=== PATIENT | female | born 1985 | race Hispanic/Latino ===

== ENCOUNTER 2020-02-18 14:30 | Emergency (ER) | payer OTHER ==
[2020-02-18] MEDS ORDERED: AMOX/K CLAV 875 MG TAB ONE (16:46)
[2020-02-18] MEDS ORDERED: ACETAMINOPHEN 325 MG TABLET ONE (16:46)
--- NOTE | 2020-02-18 17:34 | RAD REPORT ---
EXAM DESCRIPTION: RAD - Hand Left 3 View - 02/18/2020 5:02 pm CLINICAL HISTORY: ANIMAL BITE, left hand pain COMPARISON: None. FINDINGS: No fracture, dislocation or periosteal reaction noted. No foreign body. Soft tissue injury to the distal forearm separately reported. No acute bone or joint finding. IMPRESSION: No bone or joint abnormality of the left hand.
--- NOTE | 2020-02-18 17:35 | RAD REPORT ---
EXAM DESCRIPTION: RAD - Forearm Left - 02/18/2020 5:02 pm CLINICAL HISTORY: ANIMAL BITE COMPARISON: None. FINDINGS: No fracture is identified. There is no dislocation or periosteal reaction noted. Soft tissue injury present in the distal left forearm soft tissues. Lucent areas are consistent with air in the soft tissues from the animal bite. There is no foreign body. IMPRESSION: Soft tissue wound as detailed. No bone or joint abnormality.
--- NOTE | 2020-02-18 17:36 | ER ---
Nurse's Notes [facility] Name: Brittaney Nash Age: 34 yrs Sex: Female : 1985 Arrival Date: 02/18/2020 Time: 14:33 Bed 12 Private MD: Diagnosis: Bitten by dog-left forearm;Laceration without foreign body of left forearm;Puncture wound without foreign body of left forearm Presentation: 02/17 14:33 Chief complaint: EMS states: pit bull bit L forearm approximately 45 minutes ago. PD on ss scene. Dog has been captured and taken by animal laboratory helper. No active bleeding noted at this time. Coronavirus screen: Proceed with normal triage. Patient denies a cough. Patient denies shortness of breath or difficulty breathing. Patient denies measured and/or subjective temperature greater than 100.4F prior to today's visit. Patient denies travel on a cruise ship or to a country the [facility] currently lists as an affected area. Patient denies contact with known and/or suspected case of COVID-19. Ebola Screen: Patient denies exposure to infectious person. Patient denies travel to an Ebola-affected area in the 21 days before illness onset. Initial Sepsis Screen: Does the patient meet any 2 criteria? No. Patient's initial sepsis screen is negative. Does the patient have a suspected source of infection? No. Patient's initial sepsis screen is negative. Risk Assessment: Do you want to hurt yourself or someone else? Patient reports no desire to harm self or others. Onset of symptoms was February 18, 2020. 14:33 Method Of Arrival: EMS: [facility] 14:33 Acuity: JUANA 4 ss Historical: - Allergies: 14:35 No Known Allergies; ss - Home Meds: 14:35 None [Active]; ss - PMHx: 14:35 None; ss - PSHx: 14:35 None; ss - Immunization history:: Adult Immunizations up to date. - Social history:: Smoking status: Patient denies any tobacco usage or history of. Screenin:42 Abuse screen: Denies threats or abuse. Denies injuries from another. Nutritional ss screening: No deficits noted. Tuberculosis screening: Never had TB. Fall Risk None identified. Assessment: 16:20 General: Appears in no apparent distress. comfortable, Behavior is calm, cooperative, ss Denies fever, feeling ill, fatigue, chills. Pain: Complains of pain in palmar aspect of left forearm Pain currently is 5 out of 10 on a pain scale. Is continuous. Neuro: Level of Consciousness is awake, alert, obeys commands, Oriented to person, place, time, situation. Cardiovascular: Capillary refill < 3 seconds is brisk in bilateral fingers. Respiratory: Airway is patent Respiratory effort is even, unlabored, Respiratory pattern is regular, symmetrical. EENT: Oral mucosa is moist. Derm: Skin is intact, is healthy with good turgor, Skin is pink, warm \T\ dry. normal, Bruising that is dark purple, on palmar aspect of left forearm. Injury Description: Laceration to anterior forearm 1 inch in size. No active bleeding noted at this time. Small puncture wound noted to posterior forearm. No active bleeding noted at this time. 16:42 Reassessment: XRAY at bedside. Wound care performed. Pt tolerated well. Vital Signs: 14:33 BP 116 / 76; Pulse 97; Resp 15; Temp 98.7; Pulse Ox 97% on R/A; Weight 92.99 kg; Height ss 5 ft. 1 in. (154.94 cm); Pain 5/10; 14:33 Body Mass Index 38.73 (92.99 kg, 154.94 cm) ED Course: 14:33 Patient arrived in ED. ss 14:34 Triage completed. ss 14:35 Arm band placed on right wrist. ss 16:19 Abdirashid Lawson PA is PHCP. cp 16:19 Peter Garcia MD is Attending Physician. cp 16:38 Heidy Montiel, TELLY is Primary Nurse. ss 16:42 Patient has correct armband on for positive identification. Bed in low position. Call ss light in reach. 16:42 Wound care: to laceration and puncture located on L FA was cleaned with Hibiclens, ss irrigated with normal saline. 17:02 XRAY Hand LEFT 3 View In Process Unspecified. EDMS 17:02 XRAY Forearm LEFT In Process Unspecified. EDMS 17:49 No provider procedures requiring assistance completed. Patient did not have IV access ss during this emergency room visit. Velcro wrist splint applied to left wrist. Administered Medications: 16:38 Drug: Tylenol 650 mg Route: PO; ss 17:49 Follow up: Response: No adverse reaction; Pain is decreased ss 16:38 Drug: Augmentin 875 mg Route: PO; ss 17:49 Follow up: Response: No adverse reaction ss Outcome: 17:36 Discharge ordered by . cp 17:49 Discharged to home ambulatory. 17:49 Condition: good 17:49 Discharge instructions given to patient, Instructed on discharge instructions, follow up and referral plans. medication usage, wound care, Demonstrated understanding of instructions, follow-up care, medications, Prescriptions given X 2. 17:50 Patient left the ED. ss Signatures: Dispatcher [employer] EDMS Heidy Montiel RN RN ss Abdirashid Lawson, PA PA cp
--- NOTE | 2020-02-18 17:36 | EDPHYS ---
Physician Documentation [facility] Name: Brittaney Nash Age: 34 yrs Sex: Female : 1985 Arrival Date: 02/18/2020 Time: 14:33 Bed 12 Private MD: ED Physician Peter Garcia HPI: 02/17 16:29 This 34 yrs old Female presents to ER via EMS with complaints of Dog Bite. cp 16:30 The patient was bitten on the left forearm, by a dog, for an unknown reason, outdoors. cp 16:30 Onset: The symptoms/episode began/occurred just prior to arrival. cp 16:30 Animal information: is unknown, The animal is unknown but captured. Animal control has cp been notified. 16:30 Secondary to the bite the patient reports a laceration, a puncture wound, that is deep, cp swelling. Associated signs and symptoms: Pertinent positives: bony tenderness, Pertinent negatives: heavy bleeding. 16:31 Patient reports last tetanus vaccination was about 1 year ago. cp Historical: - Allergies: 14:35 No Known Allergies; ss - Home Meds: 14:35 None [Active]; ss - PMHx: 14:35 None; ss - PSHx: 14:35 None; ss - Immunization history:: Adult Immunizations up to date. - Social history:: Smoking status: Patient denies any tobacco usage or history of. ROS: 16:31 Constitutional: Negative for body aches, chills, fever. cp 16:31 Cardiovascular: Negative for chest pain. 16:31 Respiratory: Negative for cough, shortness of breath. 16:31 Abdomen/GI: Negative for abdominal pain, nausea, vomiting, and diarrhea. 16:31 Skin: Positive for laceration(s), puncture, of the left forearm. 16:31 Neuro: Negative for numbness, tingling. 16:31 All other systems are negative. Exam: 16:35 Constitutional: The patient appears in no acute distress, alert, awake, well developed, cp well nourished. 16:35 Head/Face: Normocephalic, atraumatic. cp 16:35 Cardiovascular: Rate: normal, Pulses: Pulses are 2+ in left radial artery. 16:35 Respiratory: the patient does not display signs of respiratory distress, Respirations: normal, no use of accessory muscles, no retractions, labored breathing, is not present. 16:35 Musculoskeletal/extremity: Extremities: grossly normal except: noted in the left forearm: pain, swelling, tenderness, ROM: limited passive range of motion due to pain, in the left wrist, Perfusion: the extremity is normally perfused throughout, Sensation intact. Tendon exam: specific tendon testing normal through active and passive range of motion 16:35 Skin: injury, laceration(s), the wound is approximately 2 cm(s), of the volar aspect distal left forearm, that can be described as no foreign body, linear, with mild bleeding, mild swelling, tenderness to palpation, puncture(s), that are deep, of the dorsal aspect distal left forearm. Vital Signs: 14:33 BP 116 / 76; Pulse 97; Resp 15; Temp 98.7; Pulse Ox 97% on R/A; Weight 92.99 kg; Height ss 5 ft. 1 in. (154.94 cm); Pain 5/10; 14:33 Body Mass Index 38.73 (92.99 kg, 154.94 cm) ss MDM: 16:27 Patient medically screened. cp 16:35 Differential diagnosis: superficial laceration, tendon injury, vascular injury, open cp fracture. 17:07 Test interpretation: by ED physician or midlevel provider: xrays of left hand negative cp for fracture and xrays of left forearm negative for fracture. 17:35 Data reviewed: vital signs, nurses notes, radiologic studies, plain films. cp 17:35 Counseling: I had a detailed discussion with the patient and/or guardian regarding: the cp historical points, exam findings, and any diagnostic results supporting the discharge/admit diagnosis, radiology results, the need for outpatient follow up, a family practitioner, to return to the emergency department if symptoms worsen or persist or if there are any questions or concerns that arise at home. Response to treatment: the patient's symptoms have markedly improved after treatment, and as a result, I will discharge patient. 17:35 Special discussion: I discussed in detail with the patient the higher chance of wound cp infection based on his presenting history. 02/17 16:31 Order name: XRAY Hand LEFT 3 View; Complete Time: 17:38 cp 02/17 17:38 Interpretation: Report reviewed. cp 02/17 16:31 Order name: XRAY Forearm LEFT; Complete Time: 17:38 cp 02/17 17:39 Interpretation: Report reviewed. cp 02/17 17:35 Order name: Wound dressing; Complete Time: 17:49 cp 02/17 17:35 Order name: Wrist Splint; Complete Time: 17:49 cp Administered Medications: 16:38 Drug: Tylenol 650 mg Route: PO; ss 17:49 Follow up: Response: No adverse reaction; Pain is decreased ss 16:38 Drug: Augmentin 875 mg Route: PO; ss 17:49 Follow up: Response: No adverse reaction ss Disposition: 17:45 Chart complete. cp 18:58 Co-signature as Attending Physician, Peter Garcia MD I agree with the assessment and kdr plan of care. Disposition: 02/18/20 17:36 Discharged to Home. Impression: Bitten by dog - left forearm, Laceration without foreign body of left forearm, Puncture wound without foreign body of left forearm. - Condition is Stable. - Discharge Instructions: Nonsutured Laceration Care, Puncture Wound, Animal Bite. - Prescriptions for Augmentin 875- 125 mg Oral Tablet - take 1 tablet by ORAL route every 12 hours for 10 days; 20 tablet. Tramadol 50 mg Oral Tablet - take 1 tablet by ORAL route every 8 hours as needed; 12 tablet. - Medication Reconciliation Form, Thank You Letter, Antibiotic Education, Prescription Opioid Use form. - Follow up: Private Physician; When: 2 - 3 days; Reason: Wound Recheck. - Problem is new. - Symptoms have improved. Signatures: Dispatcher [employer] EDMS Peter Garcia MD MD [facility] Heidy Montiel RN RN ss Abdirashid Lawson PA PA cp Corrections: (The following items were deleted from the chart) 17:50 17:36 02/18/2020 17:36 Discharged to Home. Impression: Bitten by dog - left forearm; ss Laceration without foreign body of left forearm; Puncture wound without foreign body of left forearm. Condition is Stable. Forms are Medication Reconciliation Form, Thank You Letter, Antibiotic Education, Prescription Opioid Use. Follow up: Private Physician; When: 2 - 3 days; Reason: Wound Recheck. Problem is new. Symptoms have improved. cp
[2020-02-18 19:09] VITALS: BP 116/76; TEMP 98.7; O2SAT 97
== END 2020-02-18 17:50 | disposition home or self-care (01) ==
LOC: ER 14:30
DX: S51.812A Laceration without foreign body of left forearm, initial encounter (principal); W54.0XXA Bitten by dog, initial encounter; Y93.9 Activity, unspecified; Y92.89 Other specified places as the place of occurrence of the external cause
CPT/HCPCS: 99284